=== PATIENT | female | born 1995 | race Caucasian/White ===

== ENCOUNTER 2019-01-21 04:43 | Day surgery (SDC) | payer BC, OTHER ==
[2019-01-17 12:42] VITALS: BMI 23.3
[2019-01-21] MEDS ORDERED: fentaNYL CITRATE 250 MCG/5 ML VIAL ONE (07:34)
[2019-01-21] MEDS ORDERED: ROCURONIUM BROMIDE 50 MG/5 ML SYRINGE ONE (07:34)
[2019-01-21] MEDS ORDERED: PROPOFOL 20 ML ONE ×3 (07:35)
[2019-01-21] MEDS ORDERED: MIDAZOLAM HCL 2 MG/2 ML SINGLE DOSE VIAL ONE ×3 (07:35→07:44)
[2019-01-21] MEDS ORDERED: ROPIVACAINE HCL 0.5% 30ML VIAL ONE (07:43)
[2019-01-21] MEDS ORDERED: DEXAMETHASONE SOD PHOSPHATE/PF 10 MG/ML SDV ONE (07:43)
--- NOTE | 2019-01-21 08:17 | HP ---
History & Physical Update - History History: No Change - Physical Physical: No Change - Assessment Assessment: No Change - Plan Plan: No Change (see written H&P)
[2019-01-21] MEDS ORDERED: ceFAZolin SODIUM 1 GM VIAL IVPB ONE (08:35)
[2019-01-21] MEDS ORDERED: BENZOIN TINCTURE SWABSTICK TP ONE (10:21)
[2019-01-21] MEDS ORDERED: ACETAMINOPHEN 325 MG TABLET (FP) PO PRN (10:50)
[2019-01-21] MEDS ORDERED: SIMETHICONE 80 MG TAB.CHEW (FP) PO PRN (10:50)
[2019-01-21] MEDS ORDERED: oxyCODONE HCL 5 MG TABLET PO PRN (10:50)
[2019-01-21] MEDS ORDERED: IBUPROFEN 600 MG TABLET (FP) PO PRN (10:50)
--- NOTE | 2019-01-21 10:58 | OP ---
Operative Note - Note: Operative Date: 01/21/19 Pre-Operative Diagnosis: Right Adnexal Mass Operation: right ovarian cystectomy, via mini-laparotomy Findings: large right ovarian cyst, endometrioma; dilated right fallopian tube, normal left fallopian tube, unable to visualize left ovary Post-Operative Diagnosis: Same as Pre-op Surgeon: Sully Piedra Ecologist Technician: Wilder Del Castillo Anesthesiologist/SOFTWARE BUSINESS ANALYST: Tal Zepeda Anesthesia: General Specimens Removed: right ovarian cyst wall Estimated Blood Loss (mls): 100 Drains, Volume Out (mls): 75 (urine output) Fluid Volume Replaced (mls): 800
[2019-01-21] MEDS ORDERED: ONDANSETRON 4 MG/2 ML VIAL IVPUSH PRN (11:16)
[2019-01-21] MEDS ORDERED: LACTATED RINGERS SOLUTION 1,000 ML IV SCH (11:30)
[2019-01-21] MEDS ORDERED: BENZOCAINE/MENTH/CETYLPYRD CL 1 EACH LOZENGE MM PRN (12:52)
[2019-01-21 14:48] VITALS: BP 110/54; PULSE 87; TEMP 99
--- NOTE | 2019-01-21 23:42 | OP ---
DATE OF OPERATION: 01/21/2019 ATTENDING PHYSICIAN: Daya Piedra M.D. PREOPERATIVE DIAGNOSIS: Right adnexal mass. POSTOPERATIVE DIAGNOSIS: Right endometrioma. SURGERY: Right ovarian cystectomy via minilaparotomy. SURGEON: Daya Piedra M.D. CANE FLUME WATCHMAN: Wilder Del Castillo M.D. ANESTHESIOLOGIST: Tal Zepeda CRNA ANESTHESIA: General anesthesia SPECIMENS REMOVED: Right ovarian cyst. ESTIMATED BLOOD LOSS: 100 FLUIDS GIVEN: 800 URINE OUTPUT: 75 mL FINDINGS: Large right ovarian cyst, chocolate cyst endometrioma, dilated right fallopian tube, normal left fallopian tube, and non-visualized left ovary. INDICATION: Patient is a 23-year-old G0 who presented with a chief complaint of abdominal swelling. She underwent an ultrasound with her primary care and MRI which revealed a large right ovarian cyst and suspected endometrioma. She was counseled regarding medical and surgical intervention. She opted for surgical intervention with removal of the ovarian cyst. Given the size, decision was made to proceed with a laparotomy approach. She was counseled regarding risks, benefits, alternatives, and complications to procedure including conversion to laparotomy, infection, bleeding, damage to surrounding organs such as bowel, bladder, need for oophorectomy and scar formation. She expressed understanding, was brought to the operating room. DESCRIPTION OF PROCEDURE: With anesthesia, TAP block was performed, and when anesthesia was found to be adequate, patient was prepped and draped in normal sterile fashion in dorsal supine position. Approximately 4 cm incision was made with a knife, midline and vertically and carried down to underlying fascia using Bovie electrocautery. The fascia was in the midline superior and the incision was extended superiorly and inferiorly using the Bovie electrocautery. The rectus muscles were in midline and peritoneum was entered sharply. The large mass was noted, and anchor sutures were placed, and pelvic washings were performed. The large ovarian cyst was drained, was entered sharply and was drained using suction. At this point in time, the portion of the cyst wall was dissected off and sent for pathology. The space was then closed using 2-0 Biosyn, and Surgicel was placed in the ovarian bed to control hemostasis. Ovarian tissue was reapproximated well using 0 Biosyn, with the last layer using a 2-0 Monocryl. Good hemostasis was noted, copious irrigation was performed, and good hemostasis was noted. Intercede was placed over the ovarian wall. The peritoneum was closed using 2-0 Vicryl in a running fashion. The fascia was reapproximated using 0 Biosyn in a running fashion. The subcutaneous fat was closed using 0 Vicryl in a running fashion. The skin was reapproximated using 3-0 Vicryl. The patient tolerated the procedure well. Estimated blood loss was 100 mL. Patient was awakened from anesthesia and brought to the recovery room in stable condition. DAYA PIEDRA M.D. [id number] MTDD
--- NOTE | 2019-01-22 17:12 | PATH ---
Cytology Non-Gynecological Report Patient Name: SHERRI ELLIOTT [facility]. Rec. #: [id number] /Age/Gender: 1995 (Age: 24) / F Account: <[id number]> Location: [facility] Taken: 01/21/2019 Received: 01/21/2019 Reported: 01/22/2019 Physicians: Sully Piedra Specimen(s) Received A: PERITONEAL WASHINGS B: CYST FLUID Clinical History Ovarian cyst Final Diagnosis A.PERITONEAL WASHINGS: SATISFACTORY FOR EVALUATION. NEGATIVE FOR MALIGNANT CELLS. REACTIVE MESOTHELIAL CELLS AND MACROPHAGES PRESENT. B. CYST FLUID FOR CYTOLOGY: SATISFACTORY FOR EVALUATION. NEGATIVE FOR MALIGNANT CELLS. BLOODY FLUID WITH MIXED ACUTE AND CHRONIC INFLAMMATORY CELLS INCLUDING HEMOSIDERIN-LADEN MACROPHAGES. Also see concurrent pathology report [id number]. Electronically Signed Chelly Nj M.D. Gross Description A. Approximately 20cc of red colored fluid received fresh. One slide and one cellblock prepared. B. Approximately 15cc of brown colored fluid received fresh. One slide and one cellblock prepared.
--- NOTE | 2019-01-23 15:48 | PATH ---
Surgical Pathology Report Patient Name: SHERRI ELLIOTT [facility]. Rec. #: [id number] /Age/Gender: 1995 (Age: 24) / F Account: [id number] Location: AMBULATORY SURG Taken: 01/21/2019 Received: 01/21/2019 Reported: 01/23/2019 Physicians: Sully Piedra Specimen(s) Received CYST WALL Clinical History Chocolate cyst of ovary, abdominal and pelvic swelling Final Diagnosis CYST WALL, EXCISION: OVARIAN TISSUES WITH CYST SHOWING FIBROTIC WALL WITH RECENT AND CHRONIC HEMORRHAGE (HEMOSIDERIN LADEN MACROPHAGES). SEE COMMENT. Comment: No lining epithelium identified. Immunohistochemistry stain CD10 highlights the endometrial type stroma. Findings are consistent with endometrial cyst (endometriosis). Electronically Signed Chelly Nj M.D. Gross Description Received in formalin labeled "cyst wall," are 5 portions of the disrupted fibrous tissue ranging from 5.5 x 2.7 x 0.9 cm to 11.0 x 9.0 x 0.7 cm. The outer surfaces of the cyst wall are mendoza-pink and smooth. The inner lining of the cyst is focally brown and hemorrhagic. Mission Assessment Specialist sections are submitted in 10 cassettes. DL/01/21/2019 saudi/01/21/2019
== END 2019-01-21 18:43 | disposition home or self-care (01) ==
LOC: UNDOADMIN 04:43 → JASUSAT 04:43 → JSAMEDAYSX 04:43 → EDSTATUS 08:00 → J3W 13:00 → JSAMEDAYSX 13:00 → JASUSAT 18:43
PROVIDERS: ATTEND Obstetrics & Gynecology
PROC: 0UB00ZZ Excision of Right Ovary, Open Approach (ICD-10-PCS; principal; 2019-01-21 08:00)
DX: N80.1 Endometriosis of ovary (principal)
CPT/HCPCS: 36415; 84703; 86850; 86900; 86901; 88304-TC; 94760